=== PATIENT | female | born 1950 | race Caucasian/White ===

== ENCOUNTER 2016-05-17 23:30 | Inpatient (IN) | payer MEDICARE, OTHER ==
[2016-05-18 01:52] VITALS: BP 102/66
[2016-05-18] MEDS ORDERED: Magnesium Hydroxide (MOM) 30 mL UDC PO PRN (19:31)
[2016-05-18] MEDS ORDERED: Maalox 30 mL Cup PO PRN (19:31)
[2016-05-18] MEDS ORDERED: Hydrocodone/APAP 5mg/325mg Tab PO PRN (19:31)
[2016-05-18] MEDS ORDERED: Hydrocodone/APAP 10 mg/325 mg Tab PO PRN (19:31)
[2016-05-18] MEDS ORDERED: D5-0.9%NS 1,000 ML IV SCH (19:45)
[2016-05-18 22:24] LABS: CHOLESTEROL 149 mg/dL (<200); TRIGLYCERIDES 114 mg/dL (<150)
--- NOTE | 2016-05-19 09:29 | History & Physical ---
CHIEF COMPLAINT: Psychosis. HISTORY OF PRESENT ILLNESS: This is a 66-year-old female with history of bipolar disorder who [facility] ED at [facility]. The patient's ____ has been labile ____ hyperverbal, endorsing paranoid delusion ____ body ____ psych attack. The patient denies suicidal ideation or delusions ____. She has poor insight into ____. The patient is significantly disorganized, ____ difficult to redirect her ___. Her ____ include ____ and for the paranoid grandiose delusions ____ admission is ____ been seen ____. The patient became ____. The patient had ____. The patient is not eating or sleeping. The patient ____ severe chronic kidney disease. psych history. ____ disorder. The patient ____ in her 20s. ____. PAST MEDICAL HISTORY: ____ kidney disease. ALLERGIES: No known allergy. SUBSTANCE ABUSE HISTORY: The patient denies any smoking or drug abuse. PHYSICAL EXAMINATION: GENERAL: The patient is awake, in no acute distress. VITAL SIGNS: Temperature ____ 98.1, pulse 81, ____ O2 saturation is ____ % on room air. HEENT: Head is atraumatic normocephalic. ____ clear. NECK: Supple. No thyromegaly. HEART: S1 and S2. No murmurs, rubs, or gallops. LUNGS: Clear. No wheeze or rhonchi. ABDOMEN: Soft ____ positive bowel sounds. GENITOURINARY: BACK: ____. EXTREMITIES: ____. SKIN: ____. NEUROLOGIC: Cranial nerves 2 through 12 intact. ____ intact. . LABORATORY DATA: as follows. No admission labs. IMPRESSION: 1. Bipolar disorder. 2. ____ kidney disease. 3. Hypertension. 4. Anemia. PLAN: The patient admitted to [facility] unit ____ [facility]. Psychiatric consultation with Dr. Cabrera. We will obtain cardiology consultation with ____. [facility]# [id number]
--- NOTE | 2016-05-19 12:45 | Diagnostic Imaging Report ---
Renal ultrasound HISTORY: Renal failure. COMPARISON: None Technique: Sonography of the kidneys and urinary bladder was performed in multiple planes. FINDINGS: The right kidney measures 14.1 x 6.7 cm demonstrating multiple cystic lesions the largest along the inferior pole measuring 8.3 cm. Assessment for hydronephrosis is limited due to patient's multiple cystic lesions. The left kidney measures 15.1 x 7.8 cm demonstrating multiple cystic lesions, the largest along the left upper pole measuring 4.7 cm. Assessment for hydronephrosis was also limited. The post void urinary bladder volume is 41 mL's. The urinary bladder wall is borderline prominent measuring 4 mm. IMPRESSION: Enlarged bilateral kidneys with numerous cysts most suggestive of polycystic renal disease. This limits assessment for hydronephrosis. If clinically indicated, CT would provide additional detail and assessment. No evidence of elevated postvoid residual bladder volumes Borderline prominent urinary bladder wall. Please correlate with clinical findings.
--- NOTE | 2016-05-19 15:12 | Psychosocial Evaluation ---
JUSTIFICATION FOR HOSPITALIZATION: 5150 hold, grave disability, patient disorganized, labile, not sleeping, not eating. CHIEF COMPLAINT: "I am here for my feet." HISTORY OF PRESENT ILLNESS: A 66-year-old female with history of bipolar, sent from [facility] for worsening manic symptoms. No insight, hallucinations, paranoia and infestation by "orbs," poor sleep, unclear ____ compliance. On [id number], the patient confused as to why she is here, believes she is here for "feet," not sleeping, not eating, very well, not answering some questions appropriately. PAST PSYCHIATRIC HISTORY: Multiple psych admissions, suicide attempt over 3 years ago. MEDICATIONS: She states that she has done well in the past on Latuda and possibly Ativan. She has been on multiple medications including Depakote, Seroquel, which did not work well for her, lithium. She has ____ disease now. She has been on Thorazine, Navane, Tegretol, Haldol, this caused drowsiness, Risperdal, unclear, Zyprexa, unclear side effects. ALLERGIES: No known drug allergies. PAST MEDICAL HISTORY: Polycystic kidney disease. SOCIAL HISTORY: The patient was born in [place], currently . She lives with daughter and daughter's family. The patient states that she at times uses nicotine and marijuana, occasional cigars. LEGAL HISTORY: None. She has 2 children, both adults. MENTAL STATUS EXAMINATION: Appearance, stated age. Fair eye contact. Unkempt, speech accelerated. Mood "okay." Affect flat. Thought processes were tangential. Thought content, no overt SI or HI. The patient confused, disoriented, believes that she is here for her feet, believing that she is infested by orbs, poor concentration. Insight and judgment diminished x 2. PROVISIONAL DIAGNOSES: Bipolar, most recent episode manic with evidence of psychosis. Poor medication and treatment compliance. MEDICAL: As noted. ESTIMATED LENGTH OF STAY: 5-10 days. The patient's strengths good family support and good access to care. WEAKNESSES: Unclear ____ compliance. ASSESSMENT: The patient requiring inpatient hospitalization, psychotic, delusional, not sleeping, disorganized. PLAN: We will initiate medications. TREATMENT PLAN: Includes group as well as milieu therapy. CONDITIONS FOR DISCHARGE: Improved mood, improved affect, cessation of any SI or HI, control of her psychotic symptoms. [facility]# [id number]
== END 2016-05-18 20:00 | disposition short-term general hospital (02) | DRG 885 ==
LOC: GERO 23:30
PROVIDERS: ADMIT Psychiatry & Neurology Psychiatry; ATTEND Psychiatry & Neurology Psychiatry
DX: F31.9 Bipolar disorder, unspecified (principal); I12.9 Hypertensive chronic kidney disease with stage 1 through stage 4 chronic kidney disease, or unspecified chronic kidney disease; F29 Unspecified psychosis not due to a substance or known physiological condition; N18.9 Chronic kidney disease, unspecified; D64.9 Anemia, unspecified
CPT/HCPCS: 36415-UA; 76770-TC; 80061-TC; Z7610

== ENCOUNTER 2016-05-18 20:00 | Inpatient (IN) | payer MEDICARE, OTHER ==
[2016-05-19 01:43] VITALS: BP 140/77
[2016-05-19] MEDS ORDERED: Magnesium Hydroxide (MOM) 30 mL UDC PO PRN (02:37)
[2016-05-19] MEDS ORDERED: Hydrocodone/APAP 10 mg/325 mg Tab PO PRN (02:37)
[2016-05-19] MEDS ORDERED: Maalox 30 mL Cup PO PRN (02:37)
[2016-05-19] MEDS ORDERED: Hydrocodone/APAP 5mg/325mg Tab PO PRN (02:37)
[2016-05-19] MEDS ORDERED: D5-0.9%NS 1,000 ML IV SCH (02:38)
[2016-05-19 06:51] LABS: % BASOPHILS 0.9 % (0.0-2.0); % EOSINOPHILS 2.8 % (0.0-5.0); % MONOCYTES 6.7 % (2.0-10.0); % NEUTROPHILS 58.6 % (40.0-80.0); HEMATOCRIT 29.5 % (35.0-45.0); HEMOGLOBIN 10.1 gm/dL (11.7-16.1); MEAN CELL VOLUME 79.4 fl (81-100); MEAN CORPUSCULAR HEMOGLOBIN 27.3 pg (27.0-31.0); MEAN CORPUSCULAR HGB CONC 34.3 pg (28.0-36.0); MEAN PLATELET VOLUME 8.9 fl; NEUTROPHILE ABSOLUTE 4.1 Th/cmm (1.8-8.0); PLATELET COUNT 233 Th/cmm (150-400); RED BLOOD COUNT 3.72 Mil/cmm (3.80-5.20); RED CELL DISTRIBUTION WIDTH 12.5 % (11.5-20.0); WHITE BLOOD COUNT 7.1 Th/cmm (4.8-10.8)
[2016-05-19 07:05] LABS: ALB/GLOB RATIO 1.6 (1.0-1.8); BILIRUBIN,TOTAL 0.2 mg/dL (0.3-1.0); BUN/CREATININE RATIO 16.7; CALCIUM SERUM 9.5 mg/dL (8.6-10.3); CARBON DIOXIDE 21.3 mEq/L (21.0-31.0); CREATININE - SERUM 2.4 mg/dL (0.6-1.2); POTASSIUM SERUM 3.3 mEq/L (3.5-5.1)
[2016-05-19] MEDS ORDERED: CINACALCET HCL 30 MG PO SCH (09:00)
[2016-05-19] MEDS ORDERED: Pneumococcal Vaccine 0.5 mL Vial IM ONE (09:00)
[2016-05-19] MEDS ORDERED: VTE Chemical Prophylaxis Screen/Admission MC PRN (12:14)
[2016-05-19 13:06] LABS: URINE COLOR YELLOW
[2016-05-19 13:07] LABS: URINE BACTERIA NONE SEEN /hpf (NONE SEEN); URINE BILIRUBIN NEGATIVE (NEGATIVE); URINE BLOOD NEGATIVE (NEGATIVE); URINE EPITHELIAL CELLS RARE /lpf (FEW); URINE GLUCOSE (UA) NEGATIVE (NEGATIVE); URINE KETONE NEGATIVE (NEGATIVE); URINE PROTEIN NEGATIVE (NEGATIVE); URINE RBC NONE SEEN /hpf (0-5); URINE UROBILINOGEN 0.2 E.U./dL (0.2 - 1.0); URINE WBC NONE SEEN /hpf (0-5)
[2016-05-19] MEDS ORDERED: Potassium Chloride 20 mEq ER Tab PO ONE (16:04)
[2016-05-19] MEDS: D5-0.9%NS 1,000 ML IV SCH (16:34)
--- NOTE | 2016-05-19 20:01 | Admit Criteria Form ---
Admit Criteria Forms - Admit Criteria Diagnosis: RENAL FAILURE, ACUTE Clinical Indications for Admission to Inpatient Care ( Place 'X' for any and all applicable criteria): Admission is indicated for ALL (if I & II) or III of the following [A](2)(3)(4)( 5)(6)(7): [ ]I. Acute renal failure as indicated by ANY ONE of the following: [ ]a) A 3-fold rise in serum creatinine from baseline [ ]b) Serum creatinine greater than 4 mg/dL (354 micromoles/L) with an acute rise greater than 0.5 mg/dL (44.2 micromoles/L) [ ]c) Reduction of more than 75% in estimated glomerular filtration rate from baseline [ ]d) Estimated glomerular filtration rate less than 35 mL/min/1.73m2 (0.59mL/sec/1.73m2)in a child up to 18 years of age [ ]e) Anuria indicated by ALL of the following: [ ]i) Adequate volume status [ ]ii) Cessation of urine output indicated by ANY ONE of the following: [ ]1) Urine output less than 0.3 mL/kg/hr for 24 hours [ ]2) Anuria (urine output less than 0.1 mL/kg/ hr) for 12 hours [X] II. Renal failure cannot be managed in an outpatient setting or observational care setting as indicating by ANY ONE of the following: [ ]a) Altered mental status that is severe or persistent [ ]b) Volume overload or Respiratory distress (eg, clinically significant pulmonary edema) that is severe or persistent [ ]c) Cardiac arrhythmias of immediate concern [ ]d) Hemodynamic instability [ ]e) Clinically significant electrolyte abnormality that requires inpatient care (eg, hyperkalemia with severe ECG findings)[B] [ ]f) Clinically significant metabolic abnormality (eg, acidosis) that is severe or persistent [ ]g) Acute treatment of renal failure (eg, renal replacement therapy) not feasible or appropriate in observational care setting [ ]h) Clinical situation too unstable or uncertain (eg, inadequate urine output, ongoing decline in renal function, etiology unclear) [ ]i) Necessary support and caregiver ability to comply with outpatient treatment cannot be arranged in observation care timeframe (eg, within 24 hours) [X]j) Other significant finding or clinical condition judged not to be within scope of observation care [ ]III.General contraindications and/or Inappropriate clinical situations for Observational Care in patients with Acute Renal Failure, when ANY ONE of the following is required: [ ]a) Prediction of prolongation of LOS based on ANY ONE of the following may be considered as a contraindication for observational care 2, 3, 4, 5, 6, 7, 8 , 9, 10, 11 [ ]i) Age > 65 yrs. [ ]ii) Patient arriving by ambulance [ ]iii) Patient with high acuity [ ]iv) Patient requiring vital sign monitoring [ ]v) Patient on IV medication [ ]b) Systolic blood pressures 180mmHg 3,12 [ ]c) Patient with altered mental status including delirium and other alteration of consciousness, (3) [ ]d) Patient whose discharge disposition will be to a fpc home or rehabilitation home should not be managed in Emergency Department Observation Unit. CMS rule requires 3 days hospital stay before such placement.3,13 [ ]e) Patient with failure to thrive due to broad array of etiologies 3, 16,17 [ ]f) Inability to ambulate 3,14 Extended stay beyond goal length of stay may be needed for(13) [ ]a) Continuing uremic complications [ ]b) Care for comorbidities [ ]c) acute renal failure [ ]d) Need for dialysis The original [facility] [employer] content created by [employer] has been revised. The portions of the content which have been revised are identified through the use of italic text or in bold, and [facility] has neither reviewed nor approved the modified material. All other unmodified content is copyright [facility]. Please see references footnoted in the original [facility] [employer] edition 2016 Admit Criteria Met?: Yes
[2016-05-19] MEDS: CINACALCET 30 MG PO SCH (21:34)
--- NOTE | 2016-05-20 04:24 | Consultation ---
NEPHROLOGY CONSULTATION REQUESTING PHYSICIAN: Dr. Jude Burgess. REASON FOR CONSULTATION: Chronic kidney disease. HISTORY OF PRESENT ILLNESS: The patient is a very pleasant 66-year-old female. She carries a diagnosis of bipolar disorder. She also has polycystic kidney disease, which she found out about in her early 40s. She does have chronic kidney disease, stage 4 secondary to the polycystic kidneys and is followed by Dr. Terry, [facility]. The patient reportedly presented over to [facility] due to worsening hallucination and paranoid ideation. The patient had recently been having paranoid delusions such as parasite infections in her body and illogical statements. She had presented with manic symptoms, which started about 2 weeks prior around the time of President Arnulfo's inauguration. The patient subsequently was difficult to manage at home and was brought over to the [facility]. The patient was admitted there due to her acute manic symptoms and placed on a 5150 and once stable she was transferred over here for continued evaluation. She currently remains on a 5150 hold at this time. The patient says that she feels well, has no complaints. She does recognize her symptoms. She denies any fluid retention and otherwise has no other complaints at this time. REVIEW OF SYSTEMS: A 14-point is negative except for the HPI. PAST MEDICAL HISTORY: As per HPI. She also has hypertension. She does have secondary hyperparathyroidism of renal origin. SOCIAL HISTORY: The patient denies any smoking, alcohol or drug use. ALLERGIES: None noted drug allergies. MEDICATIONS: She is not taking lithium and has been off of lithium since she was diagnosed with polycystic kidneys. MEDICATIONS: Her outpatient medications are reviewed as per the MAR. These include Coreg 3.125 b.i.d., Sensipar 30 mg t.i.d. with meals, simvastatin 5 mg every afternoon. She is on Colace 100 mg b.i.d. and she takes her probiotic daily as well as an iron tablet daily. PHYSICAL EXAMINATION: VITAL SIGNS: She is currently afebrile, heart rate is 107, respiratory rate is 17, blood pressure 147/94. She is saturating 99% on room air. GENERAL: The patient is awake and alert. She is a very talkative female who is otherwise in no apparent distress. HEAD AND EYES: Normocephalic. Sclerae are anicteric. Oropharynx appears to be clear and moist. NECK: Supple, with no JVD. CARDIOVASCULAR: S1, S2 present and regular. There is some slight tachycardia, but there are no murmurs. LUNGS: Clear to auscultation bilaterally. ABDOMEN: Soft, nontender and nondistended with no masses felt. EXTREMITIES: No edema or skin discoloration. DIAGNOSTIC DATA: White count 7.1, hemoglobin 10.1, sodium 143, potassium 3.3, bicarbonate 21, BUN is 40, creatinine 2.4. Her urinalysis is unremarkable. Renal ultrasound is consistent with polycystic kidney disease. ASSESSMENT AND PLAN: 1. Chronic kidney disease stage 4 secondary to polycystic kidney disease. The patient will have her renal function monitor. Recommend avoiding nephrotoxic agents and renally dosing medications as appropriate. There is no indication of renal placement therapy at this time. We will go ahead and reduce the rate of the IV fluids at this time to prevent fluid overload. The patient is at her baseline renal function. 2. Bipolar disorder with acute josselyn and psychotic features. Continue with management per psychiatry. 3. Polycystic kidney disease. Continue with management and supportive care. 4. Secondary hyperparathyroidism, renal origin. We will continue with her Sensipar and monitor. 5. Hypertension with probable nephrosclerosis. Continue with Coreg, monitor the patient's blood pressure. 8. Electrolyte imbalance with hypokalemia. We will continue with monitoring and replete potassium as needed. 9. Anemia secondary to chronic kidney disease. We will check iron panel. No indication of Procrit at this time. At this time, I would like to thank Dr. Burgess for the consult. We will follow the patient with you. If any questions or concerns, please feel free to contact us. JOB# [id number] ROBERT
[2016-05-20 05:44] LABS: % EOSINOPHILS 2.2 % (0.0-5.0); % LYMPHOCYTES 33.9 % (20.0-50.0); % NEUTROPHILS 53.9 % (40.0-80.0); HEMOGLOBIN 9.4 gm/dL (11.7-16.1); MEAN CELL VOLUME 78.2 fl (81-100); MEAN CORPUSCULAR HEMOGLOBIN 27.3 pg (27.0-31.0); MEAN CORPUSCULAR HGB CONC 34.9 pg (28.0-36.0); MEAN PLATELET VOLUME 8.9 fl; NEUTROPHILE ABSOLUTE 3.4 Th/cmm (1.8-8.0); PLATELET COUNT 226 Th/cmm (150-400); RED BLOOD COUNT 3.45 Mil/cmm (3.80-5.20); RED CELL DISTRIBUTION WIDTH 12.4 % (11.5-20.0); WHITE BLOOD COUNT 6.4 Th/cmm (4.8-10.8)
[2016-05-20 05:59] LABS: ANION GAP 6.7 (7.0-16.0); BUN/CREATININE RATIO 12.3; CARBON DIOXIDE 21.1 mEq/L (21.0-31.0); CREATININE - SERUM 2.2 mg/dL (0.6-1.2); POTASSIUM SERUM 3.8 mEq/L (3.5-5.1)
--- NOTE | 2016-05-20 06:16 | History & Physical ---
CHIEF COMPLAINT: Altered mental status. HISTORY OF PRESENT ILLNESS: The patient is a 66-year-old white female with history of bipolar disorder, who initially presented to the ED at [facility]. The patient was diagnosed at [facility] with bipolar disorder, manically psychotic features, also delirium. The patient was then [facility]. Labs at the [facility] found the patient to have elevated BUN and creatinine levels. As such, the patient was transferred from the Geropsych Unit to the Medical Unit. REVIEW OF SYSTEMS: See history of present illness. MEDICATIONS: See medication reconciliation form. PAST MEDICAL HISTORY: Polycystic kidney disease. ALLERGIES: No known drug allergies. SOCIAL HISTORY: The patient drinks socially. The patient smoked over 20 years ago. The patient stopped smoking marijuana this year. FAMILY HISTORY: Noncontributory. PHYSICAL EXAMINATION: GENERAL: The patient is awake, alert, nontoxic in appearance. VITAL SIGNS: On admission, temperature 98.4, pulse is 78, blood pressure 123/72, respiratory rate 18, O2 saturation 98% on room air. HEENT: Normocephalic and atraumatic. Extraocular movements are intact. Pupils are equal and reactive to light. Oropharynx is clear. NECK: Supple. No thyromegaly. No lymphadenopathy. CARDIOVASCULAR: S1, S2. No murmurs, rubs or gallops. RESPIRATORY: Clear. No wheezes, rales or rhonchi. GASTROINTESTINAL: Soft, nontender. Positive bowel sounds. GENITOURINARY: No CVA tenderness, no suprapubic tenderness. BACK: No midline tenderness. EXTREMITIES: Equal pulses bilaterally. SKIN: Negative. NEUROLOGIC: Cranial nerves are intact. Extraocular movements are intact. Sensation is intact. Motor is intact. LABORATORY DATA: Hematology: WBC 7.1, hemoglobin 10.1, hematocrit 29.5, platelet count of 233, no left shift noted. Chemistry: Sodium 123, potassium 3.3, chloride 115, bicarbonate 24, anion gap of 10, BUN 40, creatinine 2.4, Glucose 104, calcium 9.5, total bilirubin 0.2. AST 34, ALT 21, alkaline phosphatase 53. Total protein 6.5, albumin 4.0, globulin 2.5. Urinalysis: Negative. IMPRESSION: 1. Bipolar disorder (manic with psychotic feature). 2. Delirium. 3. Polycystic kidney disease. 4. Hyperlipidemia. 5. Hypertension. PLAN: The patient will be admitted to Med-Surg Unit. We will obtain Psychiatry and Nephrology consultations. We will obtain Cardiology consultation. We will obtain further labs and consultations as needed. JOB# [id number] MTDKevin
[2016-05-20] MEDS: CINACALCET 30 MG PO SCH ×3 (08:22→23:15)
[2016-05-20] MEDS: D5-0.9%NS 1,000 ML IV SCH (08:26)
[2016-05-20] MEDS ORDERED: Haloperidol Lactate 5 mg/mL 1mL Vial IM ONE (12:14)
[2016-05-21 06:00] LABS: % BASOPHILS 1.2 % (0.0-2.0); % EOSINOPHILS 1.9 % (0.0-5.0); % LYMPHOCYTES 30.7 % (20.0-50.0); % MONOCYTES 8.6 % (2.0-10.0); % NEUTROPHILS 57.6 % (40.0-80.0); HEMATOCRIT 28.2 % (35.0-45.0); HEMOGLOBIN 9.4 gm/dL (11.7-16.1); MEAN CELL VOLUME 81.1 fl (81-100); MEAN CORPUSCULAR HGB CONC 33.3 pg (28.0-36.0); MEAN PLATELET VOLUME 8.8 fl; NEUTROPHILE ABSOLUTE 3.7 Th/cmm (1.8-8.0); PLATELET COUNT 216 Th/cmm (150-400); RED BLOOD COUNT 3.48 Mil/cmm (3.80-5.20); RED CELL DISTRIBUTION WIDTH 12.9 % (11.5-20.0); WHITE BLOOD COUNT 6.3 Th/cmm (4.8-10.8)
[2016-05-21 06:19] LABS: ANION GAP 7.2 (7.0-16.0); BUN/CREATININE RATIO 11.2; CALCIUM SERUM 9.4 mg/dL (8.6-10.3); CARBON DIOXIDE 22.4 mEq/L (21.0-31.0); CREATININE - SERUM 2.5 mg/dL (0.6-1.2); PHOSPHOROUS 3.2 mg/dL (2.5-5.0); POTASSIUM SERUM 3.6 mEq/L (3.5-5.1)
[2016-05-21 08:10] LABS: IRON SATURATION 27 % (15-55); TIBC (LCI) 208 ug/dL (250-450); UIBC 151 ug/dL (118-369)
[2016-05-21] MEDS: CINACALCET 30 MG PO SCH ×2 (10:34→13:18)
--- NOTE | 2016-05-21 17:37 | Consultation ---
HISTORY OF PRESENT ILLNESS: A 66-year-old female who was at Geropsych Unit transferred to the Med/Surg unit. I saw her yesterday, bipolar, manic, she was psychotic, delusional. She had acute kidney failure and was transferred to the Med/Surg unit. On [id number], the patient states she feels she needs to be in the hospital, still symptomatic, still somewhat tangential, disoriented, not quite sure why she is going to leave the hospital. I did start her on Geodon. The patient with erratic sleep. The patient did have some behavioral disturbances over the past day or two. ALLERGIES: No known drug allergies. SOCIAL HISTORY: The patient drinks socially, smoked many years ago, also using marijuana. The patient states she lives with sister. MEDICATIONS: Reviewed. MENTAL STATUS EXAMINATION: Appearance stated age, some eye contact. Speech within normal limits. Mood "okay." Affect flat. Thought processes were tangential. Thought content, no SI, no HI. The patient presented with belief that her mind was infested by orbs. Insight impaired. Judgment impaired. PROVISIONAL DIAGNOSIS: Bipolar, manic with evidence of psychosis, poor medication treatment compliance. MEDICAL: As noted. RECOMMENDATIONS AND PLAN: Upon medical clearance, please transfer back to the Geropsych Unit. The patient is agreeable to remain in the hospital voluntarily. JOB# [id number]
--- NOTE | 2016-05-22 03:45 | Progress Notes ---
SUBJECTIVE: The patient is awake and alert. The patient is on IV fluids. OBJECTIVE: VITAL SIGNS: Temperature 98.7, pulse 81, blood pressure 118/73, respirations 16, O2 sat is 100% on room air. CARDIOVASCULAR: S1 and S2. RESPIRATORY: Clear. ABDOMEN: Soft. Positive bowel sounds. LABORATORY DATA: Labs done on patient is hematology: WBC 6.4, hemoglobin 9.4, hematocrit per labs, platelet count of 226, no left shift noted. Chemistry: Sodium 141, potassium per labs, chloride 117, bicarbonate 21, anion gap 6.7, BUN 27, creatinine 2.2. GFR is 23.8. Glucose is 95. Calcium 9.0. Microbiology: No new microbiology results. ASSESSMENT: 1. Acute kidney injury (improved). 2. Polycystic kidney disease. 3. Bipolar disorder (manic with psychotic features) 4. Delirium. 5. Hyperlipidemia. 6. Hypertension. PLAN: Continue current medication and treatment. Obtain labs in a.m. Further consults. JOB# [id number] ROBERT
== END 2016-05-21 17:00 | DRG 683 ==
LOC: MSI 20:00
PROVIDERS: ADMIT Preventive Medicine Preventive Medicine/Occupational Environmental Medicine; ATTEND Preventive Medicine Preventive Medicine/Occupational Environmental Medicine
DX: N17.9 Acute kidney failure, unspecified (principal); Q61.3 Polycystic kidney, unspecified; F31.2 Bipolar disorder, current episode manic severe with psychotic features; N18.4 Chronic kidney disease, stage 4 (severe); N25.81 Secondary hyperparathyroidism of renal origin; I12.9 Hypertensive chronic kidney disease with stage 1 through stage 4 chronic kidney disease, or unspecified chronic kidney disease; R41.0 Disorientation, unspecified; E78.5 Hyperlipidemia, unspecified; E87.6 Hypokalemia; D63.1 Anemia in chronic kidney disease; Z87.891 Personal history of nicotine dependence
CPT/HCPCS: 36415-UA; 80048-TC; 80053-TC; 81001-TC; 82728-90; 83540-90; 83550-90; 83735-TC; 84100-TC; 85025-TC; 93005; J1200; J1630; J2060; J7042; Z7610

== ENCOUNTER 2016-05-21 16:55 | Inpatient (IN) | payer MEDICARE, OTHER ==
[2016-05-21 19:48] VITALS: BP 120/76
[2016-05-21] MEDS ORDERED: Magnesium Hydroxide (MOM) 30 mL UDC PO PRN (20:00)
[2016-05-21] MEDS ORDERED: Maalox 30 mL Cup PO PRN (20:00)
[2016-05-21] MEDS ORDERED: Hydrocodone/APAP 10 mg/325 mg Tab PO PRN (20:00)
--- NOTE | 2016-05-22 06:14 | Progress Notes ---
SUBJECTIVE: The patient is awake and alert. The patient is on IV fluids. The patient has a 1:1 sitter. OBJECTIVE: VITAL SIGNS: Temperature 98.8, pulse 68, blood pressure 123/78, respiratory rate 20, and O2 sat 96% on room air. CARDIOVASCULAR: S1 and S2. RESPIRATORY: Clear. GASTROINTESTINAL: Soft. Positive bowel sounds. LABORATORY DATA: Hematology: WBC is 6.3, hemoglobin 9.4, hematocrit 28.2, and platelet 216,000. Chemistry: Sodium 141, potassium ____, chloride 115, bicarb 22, anion gap 7.2, BUN 28, creatinine 2.5. Glucose is 82, calcium 9.4, and phosphorus 3.2. ASSESSMENT: 1. Bipolar disorder (manic with psychotic features). 2. Delirium. 3. Polycystic kidney disease. 4. Acute kidney injury. 5. Hypertension. 6. Hyperlipidemia. 7. Anemia. PLAN: Continue current medication. Obtain labs in a.m. Further recommendation per consults. JOB# [id number] [facility]
--- NOTE | 2016-05-22 14:42 | History & Physical ---
CHIEF COMPLAINT: The patient has bipolar disorder. HISTORY OF PRESENT ILLNESS: The patient initially was admitted to the Geropsych Unit at [facility] on 05/17/2016. The patient then was transferred over to Med-Surg Unit at [facility] and admitted there on 05/18/2016. The patient had been discharged from Med-Surg Unit at [facility] on May 21 and readmitted back to Geropsych Unit at [facility] on 05/21/2016. The patient was transferred to [facility] from [facility] ED where she was presented with bipolar disorder with manic psychotic features and also delirium. REVIEW OF SYSTEMS: See history of present illness. MEDICATION: See medication reconciliation form. PAST MEDICAL HISTORY: Polycystic kidney disease, bipolar disorder with manic psychotic features and delirium, renal insufficiency. ALLERGIES: No known drug allergies. SOCIAL HISTORY: The patient drinks socially. The patient had prior history of tobacco use, but last smoked 20 years ago. The patient also had a prior history of marijuana use, which she stopped during this year. PAST SURGICAL HISTORY: Negative. PHYSICAL EXAMINATION: VITAL SIGNS: Today, temperature is 98.3, pulse 74, blood pressure 121/71, respiratory rate 18, and O2 sat is 97% on room air. GENERAL: The patient is awake and alert, nontoxic in appearance. HEENT: Normocephalic and atraumatic. Extraocular movements are intact. Pupils are equal and reactive to light and accommodation. Oropharynx is clear. NECK: Supple. No thyromegaly. No lymphadenopathy. HEART: S1 and S2. No murmurs or gallops. RESPIRATORY: Clear. No wheezing or rhonchi. GASTROINTESTINAL: Soft. Nontender. Positive bowel sounds. GENITOURINARY: No CVA tenderness and no suprapubic tenderness. BACK: No midline tenderness. EXTREMITIES: Equal pulses bilaterally. No cyanosis, clubbing, or edema. SKIN: Negative. NEUROLOGIC: Cranial nerves II to XII are intact. Extraocular movements are intact. Sensation is intact. Neurovascular intact. Bilateral lower extremeties normal. LABORATORY DATA: On admission: Hematology: WBC 6.3, hemoglobin 9.4, hematocrit 28.2, platelet count of 216. Chemistry: Sodium 141, potassium 3.6, chloride per labs, bicarb 22, anion gap 7.2, BUN 28, creatinine 2.5, GFR is 20.5 , glucose 82, calcium 9.4, phos per labs, mag is 2.0. MICROBIOLOGY: MRSA screen on May 18, negative. IMPRESSION: 1. Bipolar disorder. 2. Delirium. 3. Polycystic kidney disease. 4. Acute Kidney Injury 5. History of tobacco abuse. 6. History of marijuana abuse. 7. History of alcohol use. PLAN: The patient admitted to Geropsych Unit at [facility]. Psychiatry consultation with Dr. Cabrera. Nephrology consultation with Dr. Rodriguez. Obtain further labs and consultation as needed. JOB# [id number] MTDD
[2016-05-22] MEDS: SENSIPAR 30 MG PO SCH ×2 (16:08→21:41)
--- NOTE | 2016-05-22 22:37 | Psychosocial Evaluation ---
JUSTIFICATION FOR HOSPITALIZATION: 5150 hold, grave disability, psychotic and mood decompensation. CHIEF COMPLAINT: "I want to started back on Lorenzo." HISTORY OF PRESENT ILLNESS: A 66-year-old female was in the Geropsych Unit transferred to the Med/Surg unit for continued issues and now stabilized, transferred back to the Geropsych Unit, originally presented due to psychotic and mood decompensation and hallucinations, paranoia, believing that she was infested by "orbs" also with poor sleep, not eating very well. PAST PSYCHIATRIC HISTORY: Multiple psych admissions, she does have a suicide history. MEDICATIONS: Reviewed. ALLERGIES: No known drug allergies. PAST MEDICAL HISTORY: Polycystic kidney disease. SOCIAL HISTORY: Born in [place], currently , living with daughter and daughter's family, erratic use of nicotine and marijuana. LEGAL HISTORY: None. MENTAL STATUS EXAMINATION: Appearance stated age. Fair eye contact. Fair grooming. Speech mildly accelerated. Mood: "Okay." Affect constricted. Thought processes remain tangential. No SI, no HI. Somewhat disoriented as to why she is in the hospital, paranoia was elicited on initial examination. Concentration fair. Insight and judgment fair x 2. PROVISIONAL DIAGNOSES: Major depression, most recent episode manic with evidence of psychosis, poor medication and treatment compliance. Under medical, as noted. ESTIMATED LENGTH OF STAY: 5-7 days. The patient's strengths good support from family, the patient is amenable to treatment. ASSESSMENT: The patient requiring inpatient hospitalization, off her medications decompensating, making some bizarre statements about orbs and paranoid. PLAN: We will start the patient on medications to target josselyn and psychosis. TREATMENT PLAN: Includes group as well as milieu therapy. CONDITIONS FOR DISCHARGE: Improved mood, improved affect, control of any manic symptoms, control of her psychotic symptoms, safe discharge plan, good psychiatric followup. JOB# [id number]
[2016-05-23 07:05] LABS: % BASOPHILS 0.8 % (0.0-2.0); % EOSINOPHILS 2.2 % (0.0-5.0); % LYMPHOCYTES 33.3 % (20.0-50.0); % MONOCYTES 8.4 % (2.0-10.0); % NEUTROPHILS 55.3 % (40.0-80.0); HEMATOCRIT 30.4 % (35.0-45.0); HEMOGLOBIN 10.4 gm/dL (11.7-16.1); MEAN CELL VOLUME 80.3 fl (81-100); MEAN CORPUSCULAR HEMOGLOBIN 27.5 pg (27.0-31.0); MEAN CORPUSCULAR HGB CONC 34.3 pg (28.0-36.0); MEAN PLATELET VOLUME 9.3 fl; NEUTROPHILE ABSOLUTE 3.6 Th/cmm (1.8-8.0); PLATELET COUNT 247 Th/cmm (150-400); RED BLOOD COUNT 3.79 Mil/cmm (3.80-5.20); RED CELL DISTRIBUTION WIDTH 12.7 % (11.5-20.0); WHITE BLOOD COUNT 6.5 Th/cmm (4.8-10.8)
[2016-05-23 07:36] LABS: ANION GAP 11.7 (7.0-16.0); BUN/CREATININE RATIO 15.8; CALCIUM SERUM 9.1 mg/dL (8.6-10.3); CARBON DIOXIDE 22.2 mEq/L (21.0-31.0); CREATININE - SERUM 2.4 mg/dL (0.6-1.2); POTASSIUM SERUM 3.9 mEq/L (3.5-5.1)
[2016-05-23] MEDS: SENSIPAR 30 MG PO SCH ×3 (08:57→20:47)
--- NOTE | 2016-05-24 05:11 | Progress Notes ---
SUBJECTIVE: The patient is awake, alert. No reports of acute complaints. OBJECTIVE: VITAL SIGNS: Temperature 96.8, pulse 84, blood pressure per nursing, respiratory rate 19, O2 sat 98% on room air. CARDIOVASCULAR: S1, S2. RESPIRATORY: Clear. GASTROINTESTINAL: Soft, positive bowel sounds. LABORATORY DATA: Hematology, WBC of 6.5, hemoglobin 10.4, hematocrit 30.4, platelet count of 247, no left shift noted. Chemistry, sodium 136, potassium per labs, chloride per labs, bicarbonate 22, anion gap 11, BUN per labs glucose 101, calcium 9.1. ASSESSMENT: 1. Anemia. 2. Acute kidney injury. 3. Polycystic kidney disease. 4. Bipolar disorder. 5. Delirium. 6. History of tobacco abuse. 7. History of marijuana abuse. 8. History of alcohol abuse. PLAN: Continue current medication and treatment, obtain labs in a.m. Awaiting nephrology evaluation. Further recommendations per consult. JOB# [id number] [facility]
[2016-05-24 08:11] LABS: % BASOPHILS 0.6 % (0.0-2.0); % EOSINOPHILS 2.1 % (0.0-5.0); % LYMPHOCYTES 29.7 % (20.0-50.0); % MONOCYTES 8.6 % (2.0-10.0); HEMATOCRIT 30.3 % (35.0-45.0); HEMOGLOBIN 10.2 gm/dL (11.7-16.1); MEAN CELL VOLUME 80.8 fl (81-100); MEAN CORPUSCULAR HEMOGLOBIN 27.2 pg (27.0-31.0); MEAN CORPUSCULAR HGB CONC 33.7 pg (28.0-36.0); NEUTROPHILE ABSOLUTE 3.8 Th/cmm (1.8-8.0); PLATELET COUNT 253 Th/cmm (150-400); RED BLOOD COUNT 3.75 Mil/cmm (3.80-5.20); RED CELL DISTRIBUTION WIDTH 12.6 % (11.5-20.0); WHITE BLOOD COUNT 6.3 Th/cmm (4.8-10.8)
[2016-05-24] MEDS: SENSIPAR 30 MG PO SCH ×2 (08:16→21:14)
[2016-05-24 08:30] LABS: ANION GAP 6.4 (7.0-16.0); BUN/CREATININE RATIO 16.8; CARBON DIOXIDE 22.6 mEq/L (21.0-31.0); CREATININE - SERUM 2.5 mg/dL (0.6-1.2); MAGNESIUM 2.1 mg/dL (1.9-2.7); PHOSPHOROUS 4.8 mg/dL (2.5-5.0)
--- NOTE | 2016-05-24 18:30 | Progress Notes ---
SUBJECTIVE: The patient seen, chart reviewed, discussed with staff. The patient remains symptomatic, still with some pressured speech, evidence of josselyn, delusions, seems to be dissipating. She is also with continued poor sleep. EKG was checked. QTC interval was checked. The patient would like to start Geodon immediately. Eating fairly well. __requiring__ redirection. There were continued concerns about her ability to function at a lower level of care and social work will need to help with placement. ASSESSMENT AND PLAN: The patient remains symptomatic, still with evidence of josselyn, still with some delusions. PLAN: Initiate Geodon. JOB# [id number] [facility]
--- NOTE | 2016-05-25 00:16 | Progress Notes ---
SUBJECTIVE: The patient is seen, chart reviewed, discussed with staff. The patient remains symptomatic, bizarre, making offhand gestures, responding to internal stimuli, poor sleep. She is following unit rules and directions; however, she is intrusive at times, not combative, poor sleep, but needing attention for ADLs, needing redirection, still appearing manic and delusional. ASSESSMENT: The patient remains bizarre, delusional, odd, intrusive. PLAN: We will increase Geodon, change Benadryl to temazepam. JOB# [id number]
--- NOTE | 2016-05-25 04:19 | Progress Notes ---
SUBJECTIVE: The patient is asleep. The patient is still in Psych Unit. Per Psychiatry, the patient remains still symptomatic with some josselyn and some delusions. The patient was started on Geodon. OBJECTIVE: VITAL SIGNS: Temperature 97.9, pulse of 80, blood pressure 142/90, respirations 18, O2 sat 98% on room air. CARDIOVASCULAR: S1 and S2. RESPIRATORY: Clear. ABDOMEN: Soft. Bowel sounds positive. LABORATORY DATA: Hematology: WBC of 6.3, hemoglobin 10.2, hematocrit 30.3, platelet count per labs, no left shift noted. Chemistry: Sodium 135, potassium 4.0, chloride 110, bicarb 22, anion gap per labs, BUN 42, creatinine 2.5, GFR is 20.5, glucose is 104, calcium 9.0, phos is 4.8, mag is 2.1. ASSESSMENT: 1. Anemia. 2. Hyponatremia. 3. Acute kidney injury. 4. Chronic kidney disease. 5. Polycystic kidney disease. 6. Bipolar disorder. 7. Delirium. 8. Tobacco abuse. 9. Marijuana abuse. 10. Alcohol abuse. PLAN: Continue current medications and treatment. Obtain labs on Tuesday. Further consults. JOB# [id number] [facility]
[2016-05-25] MEDS: SENSIPAR 30 MG PO SCH ×3 (09:51→20:46)
--- NOTE | 2016-05-26 07:28 | Progress Notes ---
SUBJECTIVE: The patient is awake and alert. The patient is in Geropsych Unit. OBJECTIVE: VITAL SIGNS: Temperature per nursing, pulse 85, respiration per nursing, O2 sat 97% on room air. CARDIOVASCULAR: S1 and S2. LUNGS: Clear. ABDOMEN: Soft. Positive bowel sounds. LABORATORY DATA: Labs on patient none today_. ASSESSMENT: 1. Anemia. 2. Acute kidney injury. 3. Polycystic kidney disease. 4. Bipolar disorder. 5. Delirium. 6. Tobacco abuse. 7. Marijuana abuse. 8. Alcohol abuse. PLAN: Continue current medications and treatment. Obtain labs in a.m. Further recommendations per consults. JOB# [id number] [facility]
[2016-05-26 08:09] LABS: % BASOPHILS 0.7 % (0.0-2.0); % EOSINOPHILS 1.9 % (0.0-5.0); % LYMPHOCYTES 26.9 % (20.0-50.0); % MONOCYTES 7.4 % (2.0-10.0); % NEUTROPHILS 63.1 % (40.0-80.0); HEMATOCRIT 31.3 % (35.0-45.0); HEMOGLOBIN 10.6 gm/dL (11.7-16.1); MEAN CELL VOLUME 80.8 fl (81-100); MEAN CORPUSCULAR HEMOGLOBIN 27.4 pg (27.0-31.0); MEAN PLATELET VOLUME 8.8 fl; NEUTROPHILE ABSOLUTE 4.6 Th/cmm (1.8-8.0); PLATELET COUNT 238 Th/cmm (150-400); RED BLOOD COUNT 3.87 Mil/cmm (3.80-5.20); RED CELL DISTRIBUTION WIDTH 12.9 % (11.5-20.0); WHITE BLOOD COUNT 7.1 Th/cmm (4.8-10.8)
[2016-05-26 08:24] LABS: ANION GAP 8.3 (7.0-16.0); BUN/CREATININE RATIO 20.8; CALCIUM SERUM 9.2 mg/dL (8.6-10.3); CARBON DIOXIDE 23.8 mEq/L (21.0-31.0); CREATININE - SERUM 2.5 mg/dL (0.6-1.2); POTASSIUM SERUM 4.1 mEq/L (3.5-5.1)
[2016-05-26] MEDS: SENSIPAR 30 MG PO SCH ×3 (09:31→20:38)
[2016-05-26] MEDS: METRONIDAZOLE 0.75% TP SCH (12:45)
--- NOTE | 2016-05-26 18:40 | Progress Notes ---
SUBJECTIVE: The patient seen, chart reviewed, and discussed with staff. The patient is still making some bizarre gestures. Per staff, still pressured, complaining oversedation, felt that the Restoril was too strong. Tolerant of Geodon still with some delusions, not safe for a lower level of care, requiring some prompting and redirection. ASSESSMENT: The patient remains symptomatic, not safe for a lower level of care. Still with manic and delusion symptoms, also having some side effects from the medications oversedation. PLAN: __Start__ Restoril. Continue Geodon. Continue to monitor. JOB# [id number] [facility]
--- NOTE | 2016-05-26 22:45 | Progress Notes ---
SUBJECTIVE: The patient is awake and alert. The patient is still in Geropsych Unit. The patient is still awaiting clearance from Psychiatry. The patient, per nursing staff, has a rash on her face. OBJECTIVE: VITAL SIGNS: Temperature 97.6, pulse 75, blood pressure 102/69, respiratory rate 20, O2 saturation 97% on room air. CARDIOVASCULAR: S1, S2. RESPIRATORY: Clear. GASTROINTESTINAL: Soft. Positive bowel sounds. LABORATORY DATA: Hematology: WBC 7.1, hemoglobin 10.6, hematocrit 31.3, platelet count of 238, no left shift noted. Chemistry: Sodium 137, potassium 4.1, chloride 90, bicarbonate 23, anion gap 8.3, BUN 52, creatinine 2.5. GFR is 20.5. Glucose is 123, calcium 9.2. ASSESSMENT: 1. Anemia. 2. Chronic kidney disease. 3. Polycystic kidney disease. 4. Bipolar disorder. 5. Delirium. 6. Tobacco abuse. 7. Marijuana abuse. 8. Alcohol abuse. 9. Rash (probable rosacea). PLAN: Continue current medication and treatment. Obtain labs in a.m. The patient was ordered for MetroGel for rosacea. Further consults. The patient is requiring clearance by Psychiatry prior to discharge. JOB# [id number]
--- NOTE | 2016-05-26 23:16 | Progress Notes ---
SUBJECTIVE: The patient was seen, chart reviewed, and discussed with staff. The patient remains symptomatic, still with some delusions, still bizarre at times, calm and cooperative. She is more linear on exam. She does have a rash, which is very subtle, but the patient is concerned as am I. She feels that may be the Restoril. She is sleeping a little bit better, but may be having adverse reaction. Eating fairly well. Still concerns for her safety, still concerned because of possible side effects and perceptual disturbances. ASSESSMENT: The patient with side effects of medications. It seems rash is developing, still symptomatic. PLAN: We will discontinue temazepam, discontinue Geodon for now. We will initiate Benadryl to address the rash and monitor. JOB# [id number]
[2016-05-27] MEDS: Maalox 30 mL Cup PO PRN (03:23)
[2016-05-27] MEDS: SENSIPAR 30 MG PO SCH ×3 (08:59→21:07)
[2016-05-27] MEDS: METRONIDAZOLE 0.75% TP SCH (09:00)
--- NOTE | 2016-05-28 06:19 | Progress Notes ---
SUBJECTIVE: The patient is awake, alert. The patient is still in the Geropsych Unit. The patient has a facial rash. OBJECTIVE: VITAL SIGNS: Temperature 98.2, pulse 79, blood pressure 132/71, respiratory rate 19, O2 saturation 97% on room air. CARDIOVASCULAR: S1, S2. Respiratory: Clear. GASTROINTESTINAL: Soft, positive bowel sounds. SKIN: The patient has a malar rash present. LABORATORY DATA: Labs from 05/26/2016, hematology, WBC 7.1, hemoglobin 10.6, hematocrit 31.3, platelet count of 238. Chemistry, sodium 137, potassium 4.1, chloride 109, bicarbonate 23, anion gap 8.3, BUN 52, creatinine 2.5, glucose is 123, calcium 9.2. ASSESSMENT: 1. Anemia. 2. Chronic kidney disease. 3. Polycystic kidney disease. 4. Hyperglycemia. 5. Bipolar disorder. 6. Delirium. 7. Tobacco abuse. 8. Marijuana abuse. 9. Alcohol abuse. 10. Rosacea. PLAN: Continue current medications. Obtain labs in a.m. Further consults. JOB# [id number]
[2016-05-28 08:28] LABS: HEMOGLOBIN 9.9 gm/dL (11.7-16.1); RED BLOOD COUNT 3.62 Mil/cmm (3.80-5.20)
[2016-05-28 08:34] LABS: % BASOPHILS 0.7 % (0.0-2.0); % EOSINOPHILS 3.3 % (0.0-5.0); % LYMPHOCYTES 28.5 % (20.0-50.0); % MONOCYTES 7.6 % (2.0-10.0); % NEUTROPHILS 59.9 % (40.0-80.0); HEMATOCRIT 29.5 % (35.0-45.0); MEAN CELL VOLUME 81.5 fl (81-100); MEAN CORPUSCULAR HEMOGLOBIN 27.4 pg (27.0-31.0); MEAN CORPUSCULAR HGB CONC 33.6 pg (28.0-36.0); NEUTROPHILE ABSOLUTE 3.9 Th/cmm (1.8-8.0); PLATELET COUNT 244 Th/cmm (150-400); RED CELL DISTRIBUTION WIDTH 12.8 % (11.5-20.0); WHITE BLOOD COUNT 6.4 Th/cmm (4.8-10.8)
[2016-05-28 09:08] LABS: ANION GAP 13.8 (7.0-16.0); BUN/CREATININE RATIO 21.2; CALCIUM SERUM 8.9 mg/dL (8.6-10.3); CARBON DIOXIDE 22.4 mEq/L (21.0-31.0); CREATININE - SERUM 2.6 mg/dL (0.6-1.2); POTASSIUM SERUM 4.2 mEq/L (3.5-5.1)
[2016-05-28] MEDS: METRONIDAZOLE 0.75% TP SCH (09:09)
[2016-05-28] MEDS: SENSIPAR 30 MG PO SCH ×3 (09:10→21:04)
--- NOTE | 2016-05-28 20:28 | Progress Notes ---
SUBJECTIVE: The patient is awake and alert. The patient is still in Geropsych Unit. The patient's rashes are improving. The patient still remains symptomatic with delusions. OBJECTIVE: VITAL SIGNS: Temperature 97.6, pulse 79, blood pressure 116/90, respiratory rate 20, O2 sat on room air. CARDIOVASCULAR: S1 and S2. RESPIRATORY: Clear. ABDOMEN: Soft. Positive bowel sounds. SKIN: Malar rash in face improving. LABORATORY DATA: Hematology: WBC 7.1, hemoglobin 10.6, hematocrit 31.3, platelet count of 238. Chemistry: Sodium 137, potassium 4.1, chloride 109, bicarb 23, anion gap 8.3, BUN 52, creatinine 2.5, glucose 123, calcium 9.2. ASSESSMENT: 1. Anemia. 2. Chronic kidney disease. 3. Polycystic kidney disease. 4. Hyperglycemia. 5. Bipolar disorder. 6. Delirium. 7. Tobacco abuse. 8. Marijuana abuse. 9. Rosacea. PLAN: Continue current medications. Obtain labs on Tuesday. Further consults. JOB# [id number] [facility]
--- NOTE | 2016-05-28 22:42 | Progress Notes ---
SUBJECTIVE: The patient seen, chart reviewed, discussed with staff. The patient remains symptomatic, still rambling at times, still bizarre, but seems to be more linear and engaged. The rash is improving, being treated appropriately. The patient would like medication for sleep. She wants to also retry Geodon. She had been on both Geodon and temazepam simultaneously, so the culprit of the rash is unclear. Whether it was drug induced is also somewhat unclear, but most likely. Sleeping is interrupted, still needing some prompting, but better attention to ADLs. ASSESSMENT: The patient seems to be improving, still somewhat bizarre, still internally preoccupied, but no agitation. PLAN: We will reintroduce Geodon. We will start trazodone. JOB# [id number]
--- NOTE | 2016-05-29 02:03 | Progress Notes ---
SUBJECTIVE: The patient seen, chart reviewed. Discussed with staff. The patient's rash seems to be improving. She is still somewhat bizarre, still making some odd statements, but seems to be more linear, more engaged, able to verbalize her needs better, sleeping well, eating well, following given rules and directions. It seems the placement has been confirmed. ASSESSMENT: The patient remains symptomatic, still with evidence of josselyn, still bizarre. She did have some side effects from medications, but rash seems to be resolving. PLAN: We will likely reinitiate Lorenzo. We will keep her off of temazepam. JOB# [id number]
[2016-05-29] MEDS: SENSIPAR 30 MG PO SCH ×3 (08:47→20:36)
[2016-05-29] MEDS: METRONIDAZOLE 0.75% TP SCH (08:47)
--- NOTE | 2016-05-29 23:59 | Progress Notes ---
SUBJECTIVE: The patient seen, chart reviewed, discussed with staff. The patient remains symptomatic, still with some evidence of paranoia, more linear on exam, certainly more engaged, answering questions appropriately. I did speak with daughter last night at length with the patient's consent. The patient is currently on Geodon, seems to be tolerating well, still with some episodes of poor sleep. No rash at this time. We will avoid temazepam. ASSESSMENT: The patient is still with some behavioral disturbances, still concerns about her delusions. Daughter also concerned about her mood given her history. PLAN: We will increase Geodon today. We will add 20 mg during the daytime. We will continue to target her sleep is well. JOB# [id number]
[2016-05-30] MEDS: METRONIDAZOLE 0.75% TP SCH (08:36)
[2016-05-30] MEDS: SENSIPAR 30 MG PO SCH ×3 (08:36→20:29)
[2016-05-30] MEDS: Maalox 30 mL Cup PO PRN (16:19)
--- NOTE | 2016-05-30 23:43 | Progress Notes ---
SUBJECTIVE: Chart reviewed and the patient interviewed. Also discussed the patient's condition with the staff and reviewed records and labs. The patient still has having episodes of crawling on the floor. The patient is also resisting care when staff tries to help her saying "I can't walk." She is still guarded and in irritable mood and suspicious and paranoid. The patient also is still having severe mood swings and easily agitated. She also is still suspicious and paranoid. ASSESSMENT: The patient is still psychotic. TREATMENT PLAN: We will continue monitoring her behavior and her condition closely. Also, continue monitoring psychotropic medications and we will continue to follow up. JOB# [id number]
[2016-05-31] MEDS: SENSIPAR 30 MG PO SCH ×2 (08:34→14:07)
[2016-05-31] MEDS: METRONIDAZOLE 0.75% TP SCH (08:34)
--- NOTE | 2016-05-31 19:04 | Discharge Summary ---
JUSTIFICATION FOR HOSPITALIZATION: A 5150 hold, grave disability, psychosis, mood decompensation. The patient admitted on a 14-day hold. CHIEF COMPLAINT: The patient with psychotic decompensation. HISTORY OF PRESENT ILLNESS: A 66-year-old female, previously in the Geropsych Unit, transferred to Med/Surg, stabilized medically, transferred back to the Geropsych Unit. The patient presented with psychosis, delusions, bizarre ideas, paranoia, believing she was infested by "orbs," also attesting to poor sleep, poor appetite. PAST PSYCHIATRIC HISTORY: Multiple admissions. ALLERGIES: No known drug allergies. SOCIAL HISTORY: Reviewed. MENTAL STATUS EXAMINATION: Please see full psych eval for details. PROVISIONAL DIAGNOSES: Bipolar affective disorder, most recent episode manic with evidence of psychosis as well as poor medication and treatment compliance. MEDICAL: Please see full History and Physical. HOSPITAL COURSE: After initial assessment, the patient was restarted on Geodon, temazepam. A rash had developed, which I was concerned may have been due to medications, so I stopped the medications. Dr. Burgess deemed it to be a rosacea rash, not caused by the medications. After the rash resolved, Geodon was reinitiated. I started her on trazodone. Geodon was titrated. Over the course of the hospitalization, she did improve, her mood improved, her affect improved, getting along well with staff and peers, linear, engaged, no longer delusional, sleeping much better, better coping, motivated, hopeful. I also spoke with one of her daughters over the phone. CONDITION UPON DISCHARGE: Improved, good attention to ADLs, good eye contact. Speech within normal limits. Mood "much better." Affect brighter and broader. Thought process linear. No SI, no intent, no plan. No HI, no intent, no plan. No evidence of psychosis. No delusions. No paranoia. No voices. Concentration improved. Insight improved. Judgment improved. Impulse control improved. The patient is sleeping much better, eating well, participant, hopeful, motivated, no manic symptoms, no evidence of any perceptual disturbances. DISPOSITION: The patient will be going home and living with one of her daughters. DISCHARGE DIAGNOSES: Bipolar affective disorder, most recent episode manic with evidence of psychosis, also poor medication and treatment compliance. MEDICAL: Please see full History and Physical. PROGNOSIS: If the patient follows up with Psychiatry in 7-10 days, takes her medications as directed and remains compliant with her medications, prognosis will improve, otherwise guarded. Please note, I did have a long and lengthy discussion with the patient about the importance of medication compliance. JOB# [id number]
--- NOTE | 2016-06-03 15:10 | Discharge Summary ---
DISCHARGE DIAGNOSES: 1. Bipolar affective disorder, mostly manic with evidence of psychosis. 2. Anemia. 3. Chronic kidney disease. 4. Polycystic kidney disease. 5. Hyperglycemia. 6. History of tobacco abuse. 7. History of marijuana abuse. 7. Rosacea. HOSPITAL COURSE: The patient is a white female who was transferred to Geropsych Unit at [facility] from [facility] Emergency Department. The patient was admitted with diagnoses of bipolar disorder, ____, polycystic kidney disease, acute kidney injury, history of tobacco abuse, history of marijuana abuse and history of alcohol abuse. Psychiatric consultation was obtained from Dr. Cabrera and Nephrology consultation was obtained from Dr. Rodriguez and associates. The patient was placed on IV fluids for her acute on chronic kidney disease. The patient showed improvement with IV fluids. The patient was placed on Geodon and temazepam. The patient's rosacea was treated with metronidazole gel. After improvement in the patient's psychiatric status, the patient was discharged on 05/31/2016. I recommend the patient to be followed by Psychiatry in 7-10 days. JOB# [id number]
== END 2016-05-31 18:15 | disposition home or self-care (01) | DRG 885 ==
LOC: GERO 16:55
PROVIDERS: ADMIT Psychiatry & Neurology Psychiatry; ATTEND Psychiatry & Neurology Psychiatry
DX: F30.2 Manic episode, severe with psychotic symptoms (principal); N17.9 Acute kidney failure, unspecified; Q61.3 Polycystic kidney, unspecified; E87.1 Hypo-osmolality and hyponatremia; E78.5 Hyperlipidemia, unspecified; D64.9 Anemia, unspecified; I12.9 Hypertensive chronic kidney disease with stage 1 through stage 4 chronic kidney disease, or unspecified chronic kidney disease; N18.9 Chronic kidney disease, unspecified; F10.10 Alcohol abuse, uncomplicated; F12.10 Cannabis abuse, uncomplicated; F17.200 Nicotine dependence, unspecified, uncomplicated; R21 Rash and other nonspecific skin eruption; R73.9 Hyperglycemia, unspecified; L71.9 Rosacea, unspecified
CPT/HCPCS: 36415-UA; 80048-TC; 83735-TC; 84100-TC; 85025-TC; 90899; 93005; G0410; Z7610